=== PATIENT | male | born 1955 | race Caucasian/White ===

== ENCOUNTER 2022-03-28 09:03 | Emergency (ER) | payer MEDICARE ==
[2022-03-28] MEDS ORDERED: Albuterol/Ipratropium 3.0-0.5 MG/3 ML Neb Soln NEB ONE (10:51)
[2022-03-28] MEDS ORDERED: Sodium Chloride 0.9% 10 ML Syringe FLUSH PRN ×2 (10:52→12:21)
[2022-03-28] MEDS ORDERED: Iopamidol 755 Mg/ML 100 ML Bottle IVPUSH ONE (12:21)
[2022-03-28] MEDS ORDERED: Sodium Chloride 0.9% 100 ML IV SCH (12:30)
[2022-03-28] MEDS ORDERED: predniSONE 20 MG Tab PO ONE (14:04)
[2022-03-28] MEDS ORDERED: Doxycycline 100 MG Cap PO ONE (14:04)
[2022-03-28] MEDS ORDERED: Albuterol 0.083% 2.5 MG/3 ML Neb Soln NEB ONE (14:18)
[2022-03-28] MEDS ORDERED: Albuterol 6.7 GM Inhaler INH ONE (14:21)
== END 2022-03-28 15:30 | disposition home or self-care (01) ==
LOC: JD.ED 09:03
DX: J44.1 Chronic obstructive pulmonary disease with (acute) exacerbation (principal); R09.02 Hypoxemia; F17.210 Nicotine dependence, cigarettes, uncomplicated; Z79.899 Other long term (current) drug therapy; Z20.822 Contact with and (suspected) exposure to COVID-19
CPT/HCPCS: 36415; 71045; 71275; 80053; 83880; 84484; 85025; 85379; 86140; 94640; 96360; 99284; A9270; J3490; J7512; Q9967; U0002; J7620-GY

== ENCOUNTER 2022-04-30 08:04 | Emergency (ER) | payer MEDICARE ==
[2022-04-30] MEDS ORDERED: Acetaminophen 650 MG Supp RECTAL ONE (08:20)
[2022-04-30] MEDS ORDERED: Albuterol/Ipratropium 3.0-0.5 MG/3 ML Neb Soln NEB PRN (08:23)
[2022-04-30] MEDS ORDERED: Albuterol/Ipratropium 3.0-0.5 MG/3 ML Neb Soln NEB ONE (08:31)
[2022-04-30 09:15] LABS: HEMOGLOBIN A1C 6.6 %
[2022-04-30] MEDS: Sodium Chloride 0.9% 1,000 ML IV SCH ×2 (09:21→17:52)
[2022-04-30] MEDS ORDERED: Furosemide 40 MG/4 ML VIAL IVPUSH ONE (09:54)
[2022-04-30] MEDS ORDERED: Aspirin 81 MG Tab.Chew PO ONE (10:04)
[2022-04-30] MEDS ORDERED: Heparin Sodium 5,000 Units/ML Vial IVPUSH ONE ×2 (10:05→18:27)
[2022-04-30] MEDS ORDERED: Heparin Sodium/D5W 25,000 UNITS/500 ML BAG IV SCH (10:15)
[2022-04-30] MEDS ORDERED: Nitroglycerin/D5W 25 MG/250 ML BOTTLE IV SCH (10:15)
[2022-04-30] MEDS ORDERED: Iopamidol 755 Mg/ML 100 ML Bottle IVPUSH ONE ×2 (11:22→12:49)
[2022-04-30] MEDS ORDERED: Sodium Chloride 0.9% 10 ML Syringe FLUSH PRN (11:22)
[2022-04-30] MEDS ORDERED: Sodium Chloride 0.9% 45 ML IV SCH (11:30)
[2022-04-30] MEDS ORDERED: Sodium Chloride 0.9% 100 ML IV SCH (13:00)
[2022-05-01] MEDS ORDERED: Aspirin 300 MG Supp RECTAL SCH (09:00)
== END 2022-04-30 19:30 ==
LOC: JD.ED 08:04
DX: I21.4 Non-ST elevation (NSTEMI) myocardial infarction (principal); I11.0 Hypertensive heart disease with heart failure; I50.9 Heart failure, unspecified; J43.1 Panlobular emphysema; J96.21 Acute and chronic respiratory failure with hypoxia; J84.10 Pulmonary fibrosis, unspecified; R91.8 Other nonspecific abnormal finding of lung field; K21.9 Gastro-esophageal reflux disease without esophagitis; F17.210 Nicotine dependence, cigarettes, uncomplicated; E66.9 Obesity, unspecified; Z68.30 Body mass index [BMI] 30.0-30.9, adult; Z20.822 Contact with and (suspected) exposure to COVID-19
CPT/HCPCS: 36415; 36600; 70450; 70496; 70498; 71045; 71275; 73030; 80053; 80307; 81001; 82550; 82553; 82803; 83036; 83605; 83735; 83880; 84484; 85007; 85027; 85379; 85610; 85730; 86140; 87040; 93005; 94640; 94660; 96365; 96366; 96368; 96375; 99285; A9270; J1644; J1940; J3490; J7030; Q9967; U0002; 93010; J7620-GY